=== PATIENT | male | born 2000 | race African-American/Black ===

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

== ENCOUNTER 2024-09-10 10:54 | Emergency (ER) | payer SELFPAY ==
[~2024-09-10] VITALS: Ht 167.6 cm; Wt 63.0 kg
[2024-09-10] MEDS ORDERED: LIDOcaine HCl 1% (Local Anesth.) 20 ML VIAL STI ONE (11:05)
[2024-09-10] MEDS ORDERED: KEFLEX500 MG PO (11:17)
[2024-09-10 11:32] VITALS: BP 104/65
== END 2024-09-10 11:30 | disposition home or self-care (01) | DRG 605 ==
LOC: ED 10:54
PROC: 09C03ZZ Extirpation of Matter from Right External Ear, Percutaneous Approach (ICD-10-PCS; principal; 2024-09-10)
DX: S00.451A Superficial foreign body of right ear, initial encounter (principal); W45.8XXA Other foreign body or object entering through skin, initial encounter